=== PATIENT | female | born 1950 | race Caucasian/White ===

== ENCOUNTER 2017-06-12 23:40 | Emergency (ER) | payer MEDICARE, OTHER ==
[~2017-06-12] VITALS: Ht 157.5 cm; Wt 113.4 kg
[2017-06-12 23:52] VITALS: BP 144/61
--- NOTE | 2017-06-13 00:06 | Emergency Room Report ---
History of Present Illness General Chief Complaint: Pain Source: Patient, Medical Record Present Illness HPI Is a 66-year-old female who had a right hip replacement about 7 years ago. She was in her normal state of health until last week when she fell. She did not have any pain is able to walk on it without a problem. For the last couple days she's been having pain to the right hip especially when she stands. Can't bear weight very well. [place] her right shifting. No new trauma as her fall. No loss of consciousness. No other complaint. Allergies: Coded Allergies: No Known Allergies (Unverified , 06/12/17) Patient History Past Medical History: see triage record, old chart reviewed Past Surgical History: other Pertinent Family History: none Social History: Denies: smoking Now: No Immunizations: other Reviewed Nursing Documentation: PMH: Agreed, PSxH: Agreed Nursing Documentation-PMH Hx Cardiac Problems: No - Morbid Obesity, Cellulitis Hx Hypertension: Yes Hx Diabetes: Yes - Type 2 History Of Psychiatric Problem: Yes - Anxiety Review of Systems Eye: Denies: eye pain, blurred vision ENT: Denies: ear pain, nose congestion, throat swelling Respiratory: Denies: cough, shortness of breath Cardiovascular: Denies: chest pain, palpitations Gastrointestinal: Denies: abdominal pain, diarrhea, nausea, vomiting Musculoskeletal: Reports: joint pain, Denies: back pain Skin: Denies: rash Neurological: Denies: headache, numbness Endocrine: Denies: increased thirst, increased urine Hematologic/Lymphatic: Denies: easy bruising All Other Systems: negative except mentioned in HPI Physical Exam Vital Signs Date Time Temp Pulse Resp B/P (MAP) Pulse Ox O2 Delivery O2 Flow Rate FiO2 06/12/17 23:45 97.5 87 16 144/61 93 Room Air vitals normal Sp02 EP Interpretation: reviewed, normal General Appearance: well appearing, no apparent distress, alert, obese Head: normocephalic, atraumatic Eyes: bilateral eye PERRL, bilateral eye EOMI ENT: hearing grossly normal, normal pharynx Neck: full range of motion, supple, no meningismus Respiratory: chest non-tender, lungs clear, normal breath sounds Cardiovascular #1: regular rate, rhythm, no murmur Gastrointestinal: normal bowel sounds, non tender, no mass, no organomegaly, no bruit, non-distended Musculoskeletal: back normal, normal range of motion Neurologic: alert, oriented x3 Psychiatric: mood/affect normal Skin: warm/dry Medical Decision Making Diagnostic Impression: Primary Impression: Hip pain, right Additional Impression: Morbid obesity with BMI of 45.0-49.9, adult ER Course Patient presents with a fall and right hip pain. There is no fracture. There may be some loosening of the hardware. Patient is nonambulatory. She uses a wheelchair. We'll discharge home. She will need followup with her orthopedic Dr. no evidence of at the joint. She does have lymphedema of the right leg Other X-Ray Diagnostic Results Other X-Ray Diagnostic Results : X-Ray ordered: Right femur x-rays # of Views/Limited Vs Complete: 4 View Indication: Pain EP Interpretation: Yes Interpretation: no dislocation, no soft tissue swelling, no fractures Impression: No acute disease Electronically Signed by: Electronically signed by Errol Richard MD CT/MRI/US Diagnostic Results CT/MRI/US Diagnostic Results : Imaging Test Ordered: CT pelvis Impression Read by radiologist. Right hip and right inpatient fixation. Lucency around the hardware. Last Vital Signs Date Time Temp Pulse Resp B/P (MAP) Pulse Ox O2 Delivery O2 Flow Rate FiO2 06/12/17 23:52 97.5 87 18 144/61 94 Room Air Status: improved Disposition: XFER SNF Condition: Stable Additional Instructions: Followup with your DrTessa in 7 days. You may need a referral to see orthopedic DrTessa Return if worse. ERROL RICHARD M.D. Jun 13, 2017 00:06
[2017-06-13 01:52] VITALS: BP 117/46
[2017-06-13 03:30] VITALS: BP 112/52
[2017-06-13 03:40] VITALS: BP 112/52
--- NOTE | 2017-06-13 11:07 | Diagnostic Imaging Report ---
Indication: Abdominal pain Technique: Continuous helical transaxial imaging of the pelvis was obtained from the iliac crest to the pubic symphysis. Coronal 2-D reformats were also obtained. Study obtained in a Siemens sensation [address] Intravenous non-ionic contrast was administered. Total Dose length Product (DLP): [address] Dose Index Volume (CTDIvol): 0.30 2.63 mGy Comparison: None Findings: Partial imaging of a right femoral joceline and dynamic hip screw noted. There is extensive periosteal new bone involving the shaft of the right proximal femur with moderate lucency between the bone and hardware. Lucency suggests possibility of loosening. The finding could be on the basis of foreign body granuloma formation. There is extensive loss of subcutaneous fatty tissue anterior to the femur contiguous with the skin in an area that is likely in the radial. Surgical clips are present. Loss of the fatty tissue planes involving the muscles about the right hip especially hip adductor musculature. Some of this area postsurgical and/or related to prior previous infection. There is no drainable abscess definitely identified although the study was done without intravenous contrast material. There is no soft tissue air identified. Posteriorly there is thickening of the skin and subcutaneous reticulation. This is only partially imaged on the examination but suggestive of decubitus disease. There is no intrapelvic abscess or fluid identified. The bladder is noted. Uterus is absent. Surgical clips noted in the area of the appendix which is likely been removed. The bones are diffusely osteopenic. Impression: Abnormal interface lucency between bone and right dynamic hip screw/intramedullary joceline. This may be on the basis of hardware loosening and/or granuloma formation. Moderate periostitis could be on the basis of chronic osteomyelitis. Please correlate clinically. Other findings as above [facility] has communicated the preliminary results to the Emergency Department. Their findings are largely concordant with this report. The CT scanner at [facility] is accredited by the [employer] and the scans are performed using dose optimization techniques as appropriate to a performed exam including Automatic Exposure control.
--- NOTE | 2017-06-13 12:01 | Diagnostic Imaging Report ---
Indication: Pain Findings: 2 views of the right femur were obtained. Abnormal interface lucency initiated between the femoral joceline and the femur. Long femoral joceline and dynamic hip screw are noted. The femur shows a diffuse periosteal reaction and sclerosis. Generalized soft tissue swelling is present. No fracture seen. Impression: Extensive periosteal reaction involving the femoral shaft. Chronic osteomyelitis not excluded. Abnormal interface lucency. Loosening not excluded.
== END 2017-06-13 03:40 ==
LOC: EDBD 23:40 → EDUNIT# 23:40 → EMR 23:56
DX: M25.551 Pain in right hip (principal); E66.01 Morbid (severe) obesity due to excess calories; Z68.42 Body mass index [BMI] 45.0-49.9, adult; Z96.641 Presence of right artificial hip joint; I10 Essential (primary) hypertension; E11.9 Type 2 diabetes mellitus without complications; F41.9 Anxiety disorder, unspecified
CPT/HCPCS: 72192; 99284